=== PATIENT | female | born 1965 | race Caucasian/White ===

== ENCOUNTER 2023-09-23 03:12 | Outpatient (CLI) | payer MEDICAID, OTHER, SELFPAY ==
[2023-09-23 10:36] LABS: Abs Immature Grans 0.25 10^3/uL (0.0-0.06); Absolute Lymphocyte Count 2.14 10^3/uL (1.2-3.4); Absolute Neutrophil Count 19.22 10^3/uL (1.2-6.7); Basophils % 0.4; Eosinophils % 1.8; HCT 46.6 % (36.0-46.0); HGB 15.1 g/dL (11.2-15.7); Immature Grans % 1.1; Lymphocytes % 9.1; MCH 29.5 pg (27.0-33.0); MCHC 32.4 % (32.0-36.0); MCV 91 fL (80-95); MPV 9.5 fL (8.0-11.0); Monocytes % 5.7; Neutrophils % 81.9; Platelet Count 304 10^3/uL (130-400); RBC 5.11 10^6/uL (3.93-5.22); RDW 15.1 % (11.7-14.6); RDW-SD 50.8 fL; WBC 23.47 10^3/uL (4.4-10.8)
[2023-09-23 10:37] LABS: Absolute Basophil Count 0.09 10^3/uL (0.0-0.2); Absolute Eosinophil Count 0.42 10^3/uL (0.0-0.7); Absolute Monocyte Count 1.34 10^3/uL (0.1-0.8)
[2023-09-23 11:00] LABS: ALT 39 U/L (14-59); AST 10 U/L (15-37); Albumin 2.9 g/dL (3.4-5.0); Alkaline Phosphatase 116 U/L (46-116); Anion Gap 10.1 mmol/L (3-11); BUN 15 mg/dL (7-18); Bilirubin, Total 0.5 mg/dL (0.2-1.0); CO2 27.9 mmol/L (21.0-32.0); CREATININE 0.9 mg/dL (0.55-1.02); Chloride 99 mmol/L (98-107); Estimated GFR 73.64 (mL/min/1.73m2); FREE T4 1.94 ng/dL (0.76-1.46); Glucose 181 mg/dL (74-106); Magnesium 1.8 mg/dL (1.8-2.4); Potassium 3.8 mmol/L (3.5-5.1); Sodium 137 mmol/L (136-145); TSH 0.09 uIU/mL (0.36-3.74); Total Protein 7.2 g/dL (6.4-8.2)
== END 2023-09-23 03:13 | disposition home or self-care (01) ==
PROVIDERS: Visit Provider Internal Medicine Medical Oncology
DX: C34.31 Malignant neoplasm of lower lobe, right bronchus or lung (principal); C79.31 Secondary malignant neoplasm of brain; Z79.899 Other long term (current) drug therapy
CPT/HCPCS: 36415; 80053; 83735; 84439; 84443; 85025

== ENCOUNTER 2023-10-07 04:02 | Outpatient (CLI) | payer MEDICAID, OTHER, SELFPAY ==
[2023-10-07 13:01] LABS: Abs Immature Grans 0.11 10^3/uL (0.0-0.06); Absolute Basophil Count 0.07 10^3/uL (0.0-0.2); Absolute Eosinophil Count 0.11 10^3/uL (0.0-0.7); Absolute Neutrophil Count 4.27 10^3/uL (1.2-6.7); Eosinophils % 1.6; HCT 43.1 % (36.0-46.0); Immature Grans % 1.6; Lymphocytes % 25.9; MCH 29.6 pg (27.0-33.0); MCHC 32.5 % (32.0-36.0); MCV 91 fL (80-95); Monocytes % 8.6; Neutrophils % 61.3; Nucleated RBC 0.7 % (0.0-0.3); Platelet Count 196 10^3/uL (130-400); RBC 4.73 10^6/uL (3.93-5.22); RDW 18.1 % (11.7-14.6); RDW-SD 53.3 fL; WBC 6.96 10^3/uL (4.4-10.8)
[2023-10-07 13:30] LABS: ALT 46 U/L (14-59); AST 18 U/L (15-37); Alkaline Phosphatase 124 U/L (46-116); Anion Gap 6.8 mmol/L (3-11); BUN 20 mg/dL (7-18); Bilirubin, Total 0.7 mg/dL (0.2-1.0); CO2 33.2 mmol/L (21.0-32.0); CREATININE 1.3 mg/dL (0.55-1.02); Calcium 8.5 mg/dL (8.5-10.1); Chloride 93 mmol/L (98-107); Estimated GFR 47.37 (mL/min/1.73m2); FREE T4 1.41 ng/dL (0.76-1.46); Glucose 196 mg/dL (74-106); Magnesium 1.4 mg/dL (1.8-2.4); Potassium 4.7 mmol/L (3.5-5.1); Sodium 133 mmol/L (136-145); TSH 0.98 uIU/mL (0.36-3.74); Total Protein 7.3 g/dL (6.4-8.2)
== END 2023-10-07 04:03 | disposition home or self-care (01) ==
LOC: LBO 04:03
PROVIDERS: Visit Provider Internal Medicine Medical Oncology
DX: C34.31 Malignant neoplasm of lower lobe, right bronchus or lung (principal); C79.31 Secondary malignant neoplasm of brain
CPT/HCPCS: 36415; 80053; 83735; 84439; 84443; 85025

== ENCOUNTER 2023-10-14 04:03 | Outpatient (RCR) | payer OTHER, MEDICAID, SELFPAY ==
[2023-10-14 09:31] LABS: Abs Immature Grans 0.14 10^3/uL (0.0-0.06); Absolute Basophil Count 0.11 10^3/uL (0.0-0.2); Absolute Lymphocyte Count 2.08 10^3/uL (1.2-3.4); Absolute Monocyte Count 0.62 10^3/uL (0.1-0.8); Absolute Neutrophil Count 7.37 10^3/uL (1.2-6.7); Basophils % 1.1; HCT 42.5 % (36.0-46.0); HGB 13.7 g/dL (11.2-15.7); Immature Grans % 1.3; MCH 30.2 pg (27.0-33.0); MCHC 32.2 % (32.0-36.0); MCV 94 fL (80-95); MPV 9.6 fL (8.0-11.0); Neutrophils % 70.6; Nucleated RBC 0.2 % (0.0-0.3); Platelet Count 235 10^3/uL (130-400); RBC 4.54 10^6/uL (3.93-5.22); RDW 19.8 % (11.7-14.6); RDW-SD 62.3 fL; WBC 10.42 10^3/uL (4.4-10.8)
[2023-10-14] MEDS: Normal Saline Flush 10 ML SYR IVP (09:35)
[2023-10-14 10:02] LABS: ALT 67 U/L (14-59); AST 27 U/L (15-37); Albumin 2.6 g/dL (3.4-5.0); Alkaline Phosphatase 193 U/L (46-116); Anion Gap 6.5 mmol/L (3-11); BUN 11 mg/dL (7-18); Bilirubin, Total 0.9 mg/dL (0.2-1.0); CO2 29.5 mmol/L (21.0-32.0); CREATININE 0.9 mg/dL (0.55-1.02); Calcium 7.9 mg/dL (8.5-10.1); Chloride 99 mmol/L (98-107); Estimated GFR 73.64 (mL/min/1.73m2); FREE T4 1.96 ng/dL (0.76-1.46); Glucose 107 mg/dL (74-106); Magnesium 1.4 mg/dL (1.8-2.4); Sodium 135 mmol/L (136-145); TSH 1.09 uIU/mL (0.36-3.74); Total Protein 6.4 g/dL (6.4-8.2)
== END 2023-10-24 23:59 | disposition home or self-care (01) ==
LOC: INF 04:03
PROVIDERS: Visit Provider Internal Medicine Medical Oncology
DX: C34.31 Malignant neoplasm of lower lobe, right bronchus or lung (principal); C79.31 Secondary malignant neoplasm of brain; Z79.899 Other long term (current) drug therapy; Z45.2 Encounter for adjustment and management of vascular access device
CPT/HCPCS: 36591; 80053; 83735; 84439; 84443; 85025

== ENCOUNTER 2023-11-04 03:59 | Outpatient (RCR) | payer OTHER, MEDICAID, SELFPAY ==
[2023-11-04] MEDS: Normal Saline Flush 10 ML SYR IVP (09:06)
[2023-11-04 09:21] LABS: Abs Immature Grans 0.04 10^3/uL (0.0-0.06); Absolute Basophil Count 0.13 10^3/uL (0.0-0.2); Absolute Eosinophil Count 0.13 10^3/uL (0.0-0.7); Absolute Lymphocyte Count 2.37 10^3/uL (1.2-3.4); Absolute Monocyte Count 0.81 10^3/uL (0.1-0.8); Absolute Neutrophil Count 6.01 10^3/uL (1.2-6.7); Basophils % 1.4; Eosinophils % 1.4; HCT 43.8 % (36.0-46.0); HGB 13.9 g/dL (11.2-15.7); Immature Grans % 0.4; MCH 29.6 pg (27.0-33.0); MCHC 31.7 % (32.0-36.0); MCV 93 fL (80-95); MPV 9.5 fL (8.0-11.0); Monocytes % 8.5; Neutrophils % 63.3; Platelet Count 284 10^3/uL (130-400); RDW-SD 60.6 fL; WBC 9.49 10^3/uL (4.4-10.8)
[2023-11-04 09:46] LABS: ALT 13 U/L (14-59); AST 10 U/L (15-37); Albumin 2.6 g/dL (3.4-5.0); Alkaline Phosphatase 106 U/L (46-116); Anion Gap 6.4 mmol/L (3-11); BUN 6 mg/dL (7-18); Bilirubin, Total 0.6 mg/dL (0.2-1.0); CO2 31.6 mmol/L (21.0-32.0); CREATININE 0.8 mg/dL (0.55-1.02); Calcium 8.6 mg/dL (8.5-10.1); Chloride 102 mmol/L (98-107); FREE T4 1.38 ng/dL (0.76-1.46); Glucose 92 mg/dL (74-106); Magnesium 1.5 mg/dL (1.8-2.4); Potassium 3.9 mmol/L (3.5-5.1); Sodium 140 mmol/L (136-145); TSH 1.74 uIU/mL (0.36-3.74); Total Protein 7.1 g/dL (6.4-8.2)
== END 2023-11-24 23:59 | disposition home or self-care (01) ==
LOC: INF 03:59
PROVIDERS: Visit Provider Internal Medicine Medical Oncology
DX: C34.31 Malignant neoplasm of lower lobe, right bronchus or lung (principal); C79.31 Secondary malignant neoplasm of brain; Z79.899 Other long term (current) drug therapy; Z45.2 Encounter for adjustment and management of vascular access device
CPT/HCPCS: 36591; 80053; 83735; 84439; 84443; 85025

== ENCOUNTER 2023-12-02 22:19 | Outpatient (RCR) | payer OTHER, MEDICAID, SELFPAY ==
[2023-12-02] MEDS: Normal Saline Flush 10 ML SYR IVP (09:07)
[2023-12-02 09:29] LABS: Abs Immature Grans 0.05 10^3/uL (0.0-0.06); Absolute Basophil Count 0.07 10^3/uL (0.0-0.2); Absolute Eosinophil Count 0.16 10^3/uL (0.0-0.7); Absolute Lymphocyte Count 2.21 10^3/uL (1.2-3.4); Absolute Monocyte Count 0.61 10^3/uL (0.1-0.8); Absolute Neutrophil Count 7.15 10^3/uL (1.2-6.7); Basophils % 0.7; Eosinophils % 1.6; HCT 43.7 % (36.0-46.0); HGB 14.1 g/dL (11.2-15.7); Immature Grans % 0.5; Lymphocytes % 21.6; MCH 28.8 pg (27.0-33.0); MCHC 32.3 % (32.0-36.0); MCV 89 fL (80-95); MPV 9.5 fL (8.0-11.0); Neutrophils % 69.6; Platelet Count 179 10^3/uL (130-400); RBC 4.89 10^6/uL (3.93-5.22); RDW 17.2 % (11.7-14.6); RDW-SD 57.1 fL; WBC 10.25 10^3/uL (4.4-10.8)
[2023-12-02 09:53] LABS: ALT 10 U/L (14-59); AST 15 U/L (15-37); Albumin 2.7 g/dL (3.4-5.0); Alkaline Phosphatase 97 U/L (46-116); Anion Gap 7.6 mmol/L (3-11); BUN 6 mg/dL (7-18); Bilirubin, Total 0.5 mg/dL (0.2-1.0); CO2 35.4 mmol/L (21.0-32.0); CREATININE 0.7 mg/dL (0.55-1.02); Calcium 8.8 mg/dL (8.5-10.1); Chloride 99 mmol/L (98-107); Estimated GFR 98.95 (mL/min/1.73m2); Glucose 100 mg/dL (74-106); Magnesium 1.5 mg/dL (1.8-2.4); Sodium 142 mmol/L (136-145); TSH 0.93 uIU/mL (0.36-3.74); Total Protein 7.4 g/dL (6.4-8.2)
[2023-12-02 09:56] LABS: Potassium 2.9 mmol/L (3.5-5.1)
== END 2023-12-25 23:59 | disposition home or self-care (01) ==
LOC: INF 22:19
PROVIDERS: Visit Provider Internal Medicine Medical Oncology
DX: C34.31 Malignant neoplasm of lower lobe, right bronchus or lung (principal); C79.31 Secondary malignant neoplasm of brain; Z79.899 Other long term (current) drug therapy; Z45.2 Encounter for adjustment and management of vascular access device
CPT/HCPCS: 36591; 80053; 83735; 84439; 84443; 85025

== ENCOUNTER 2024-01-20 03:52 | Outpatient (RCR) | payer OTHER, MEDICAID, SELFPAY ==
[2023-12-30] MEDS: Normal Saline Flush 10 ML SYR IVP (09:01)
[2023-12-30 09:04] LABS: Abs Immature Grans 0.04 10^3/uL (0.0-0.06); Absolute Basophil Count 0.06 10^3/uL (0.0-0.2); Absolute Eosinophil Count 0.11 10^3/uL (0.0-0.7); Absolute Lymphocyte Count 2.53 10^3/uL (1.2-3.4); Absolute Monocyte Count 0.89 10^3/uL (0.1-0.8); Absolute Neutrophil Count 6.54 10^3/uL (1.2-6.7); Basophils % 0.6; Eosinophils % 1.1; HCT 37.1 % (36.0-46.0); HGB 12.2 g/dL (11.2-15.7); Immature Grans % 0.4; Lymphocytes % 24.9; MCH 29.4 pg (27.0-33.0); MCHC 32.9 % (32.0-36.0); MCV 89 fL (80-95); MPV 9.4 fL (8.0-11.0); Monocytes % 8.8; Neutrophils % 64.2; Platelet Count 209 10^3/uL (130-400); RBC 4.15 10^6/uL (3.93-5.22); RDW 18.8 % (11.7-14.6); RDW-SD 61.2 fL; WBC 10.17 10^3/uL (4.4-10.8)
[2023-12-30 09:27] LABS: ALT 13 U/L (14-59); AST 11 U/L (15-37); Albumin 2.7 g/dL (3.4-5.0); Alkaline Phosphatase 95 U/L (46-116); Anion Gap 9.2 mmol/L (3-11); BUN 7 mg/dL (7-18); Bilirubin, Total 0.6 mg/dL (0.2-1.0); CO2 29.8 mmol/L (21.0-32.0); CREATININE 0.8 mg/dL (0.55-1.02); Chloride 101 mmol/L (98-107); FREE T4 1.39 ng/dL (0.76-1.46); Glucose 109 mg/dL (74-106); Potassium 3.7 mmol/L (3.5-5.1); Sodium 140 mmol/L (136-145); TSH 1.29 uIU/mL (0.36-3.74); Total Protein 7.4 g/dL (6.4-8.2)
[2023-12-30 10:38] LABS: Magnesium 1.6 mg/dL (1.8-2.4)
[2024-01-20] MEDS: Normal Saline Flush 10 ML SYR IVP (13:22)
[2024-01-20 13:43] LABS: Abs Immature Grans 0.07 10^3/uL (0.0-0.06); Absolute Basophil Count 0.05 10^3/uL (0.0-0.2); Absolute Eosinophil Count 0.26 10^3/uL (0.0-0.7); Absolute Neutrophil Count 9.47 10^3/uL (1.2-6.7); Basophils % 0.4; Eosinophils % 1.9; HCT 35.3 % (36.0-46.0); HGB 11.6 g/dL (11.2-15.7); Immature Grans % 0.5; Lymphocytes % 20.5; MCH 30.2 pg (27.0-33.0); MCHC 32.9 % (32.0-36.0); MCV 92 fL (80-95); MPV 9.8 fL (8.0-11.0); Monocytes % 7.3; Neutrophils % 69.4; Platelet Count 246 10^3/uL (130-400); RBC 3.84 10^6/uL (3.93-5.22); RDW 19.4 % (11.7-14.6); RDW-SD 65.6 fL; WBC 13.64 10^3/uL (4.4-10.8)
[2024-01-20 14:12] LABS: ALT 9 U/L (14-59); AST 7 U/L (15-37); Albumin 2.8 g/dL (3.4-5.0); Alkaline Phosphatase 105 U/L (46-116); Anion Gap 8.6 mmol/L (3-11); BUN 7 mg/dL (7-18); Bilirubin, Total 0.4 mg/dL (0.2-1.0); CO2 29.4 mmol/L (21.0-32.0); CREATININE 0.7 mg/dL (0.55-1.02); Calcium 8.6 mg/dL (8.5-10.1); Chloride 103 mmol/L (98-107); Estimated GFR 98.95 (mL/min/1.73m2); FREE T4 1.33 ng/dL (0.76-1.46); Glucose 108 mg/dL (74-106); Magnesium 1.7 mg/dL (1.8-2.4); Potassium 3.9 mmol/L (3.5-5.1); Sodium 141 mmol/L (136-145); TSH 0.28 uIU/mL (0.36-3.74); Total Protein 7.3 g/dL (6.4-8.2)
== END 2024-01-23 23:59 | disposition home or self-care (01) ==
LOC: INF 03:52
PROVIDERS: Visit Provider Internal Medicine Medical Oncology
DX: C34.31 Malignant neoplasm of lower lobe, right bronchus or lung (principal); C79.31 Secondary malignant neoplasm of brain; Z79.899 Other long term (current) drug therapy; Z45.2 Encounter for adjustment and management of vascular access device
CPT/HCPCS: 36591; 80053; 83735; 84439; 84443; 85025

== ENCOUNTER 2024-03-23 05:27 | Outpatient (RCR) | payer OTHER, MEDICAID, SELFPAY ==
[2024-03-02] MEDS: Normal Saline Flush 10 ML SYR IVP (09:42)
[2024-03-02 10:17] LABS: Abs Immature Grans 0.04 10^3/uL (0.0-0.06); Absolute Basophil Count 0.06 10^3/uL (0.0-0.2); Absolute Eosinophil Count 0.28 10^3/uL (0.0-0.7); Absolute Lymphocyte Count 2.44 10^3/uL (1.2-3.4); Absolute Monocyte Count 0.55 10^3/uL (0.1-0.8); Basophils % 0.8; HCT 33.7 % (36.0-46.0); HGB 10.8 g/dL (11.2-15.7); Immature Grans % 0.6; Lymphocytes % 34.5; MCH 32.1 pg (27.0-33.0); MCV 100 fL (80-95); MPV 9.8 fL (8.0-11.0); Monocytes % 7.8; Neutrophils % 52.3; Platelet Count 231 10^3/uL (130-400); RBC 3.36 10^6/uL (3.93-5.22); RDW 14.3 % (11.7-14.6); RDW-SD 52.6 fL; WBC 7.07 10^3/uL (4.4-10.8)
[2024-03-02 10:41] LABS: ALT 11 U/L (14-59); AST 6 U/L (15-37); Albumin 2.9 g/dL (3.4-5.0); Alkaline Phosphatase 84 U/L (46-116); BUN 10 mg/dL (7-18); Bilirubin, Total 0.4 mg/dL (0.2-1.0); CREATININE 0.8 mg/dL (0.55-1.02); Calcium 8.6 mg/dL (8.5-10.1); Chloride 103 mmol/L (98-107); FREE T4 0.91 ng/dL (0.76-1.46); Glucose 98 mg/dL (74-106); Magnesium 1.8 mg/dL (1.8-2.4); Potassium 4.1 mmol/L (3.5-5.1); Sodium 141 mmol/L (136-145); TSH 3.57 uIU/Ml (0.36-3.74); Total Protein 7.1 g/dL (6.4-8.2)
[2024-03-23] MEDS: Normal Saline Flush 10 ML SYR IVP (09:19)
[2024-03-23 09:29] LABS: Abs Immature Grans 0.01 10^3/uL (0.0-0.06); Absolute Basophil Count 0.07 10^3/uL (0.0-0.2); Absolute Lymphocyte Count 2.57 10^3/uL (1.2-3.4); Absolute Monocyte Count 0.73 10^3/uL (0.1-0.8); Absolute Neutrophil Count 6.19 10^3/uL (1.2-6.7); Basophils % 0.7; HGB 11.9 g/dL (11.2-15.7); Immature Grans % 0.1; Lymphocytes % 25.8; MCH 32.2 pg (27.0-33.0); MCV 95 fL (80-95); MPV 9.7 fL (8.0-11.0); Monocytes % 7.3; Neutrophils % 62.1; Platelet Count 216 10^3/uL (130-400); RBC 3.69 10^6/uL (3.93-5.22); RDW 13.1 % (11.7-14.6); RDW-SD 45.2 fL; WBC 9.97 10^3/uL (4.4-10.8)
[2024-03-23 09:52] LABS: ALT 13 U/L (14-59); AST 6 U/L (15-37); Albumin 3.4 g/dL (3.4-5.0); Alkaline Phosphatase 88 U/L (46-116); Anion Gap 11.6 mmol/L (3-11); BUN 9 mg/dL (7-18); Bilirubin, Total 0.4 mg/dL (0.2-1.0); CO2 27.4 mmol/L (21.0-32.0); CREATININE 0.8 mg/dL (0.55-1.02); Calcium 8.6 mg/dL (8.5-10.1); Chloride 103 mmol/L (98-107); FREE T4 0.83 ng/dL (0.76-1.46); Glucose 108 mg/dL (74-106); Magnesium 1.8 mg/dL (1.8-2.4); Potassium 3.7 mmol/L (3.5-5.1); Sodium 142 mmol/L (136-145); TSH 6.43 uIU/Ml (0.36-3.74); Total Protein 7.7 g/dL (6.4-8.2)
== END 2024-03-24 23:59 | disposition home or self-care (01) ==
LOC: INF 05:27
PROVIDERS: Visit Provider Internal Medicine Medical Oncology
DX: C34.31 Malignant neoplasm of lower lobe, right bronchus or lung (principal); C79.31 Secondary malignant neoplasm of brain; Z79.899 Other long term (current) drug therapy; Z45.2 Encounter for adjustment and management of vascular access device
CPT/HCPCS: 36591; 80053; 83735; 84439; 84443; 85025

== ENCOUNTER 2024-04-23 03:49 | Outpatient (RCR) | payer OTHER, MEDICAID, SELFPAY ==
[2024-04-13] MEDS: Normal Saline Flush 10 ML SYR IVP (08:13)
[2024-04-13 08:36] LABS: Abs Immature Grans 0.04 10^3/uL (0.0-0.06); Absolute Basophil Count 0.06 10^3/uL (0.0-0.2); Absolute Eosinophil Count 0.29 10^3/uL (0.0-0.7); Absolute Lymphocyte Count 2.93 10^3/uL (1.2-3.4); Absolute Monocyte Count 0.54 10^3/uL (0.1-0.8); Absolute Neutrophil Count 3.46 10^3/uL (1.2-6.7); Basophils % 0.8 %; HCT 38.6 % (36.0-46.0); HGB 12.6 g/dL (11.2-15.7); Immature Grans % 0.5 %; MCH 31.4 pg (27.0-33.0); MCHC 32.6 % (32.0-36.0); MCV 96 fL (80-95); MPV 9.4 fL (8.0-11.0); Monocytes % 7.4 %; Neutrophils % 47.3 %; Platelet Count 232 10^3/uL (130-400); RBC 4.01 10^6/uL (3.93-5.22); RDW 12.9 % (11.7-14.6); RDW-SD 45.8 fL; WBC 7.32 10^3/uL (4.4-10.8)
[2024-04-13 09:00] LABS: ALT 15 U/L (14-59); AST 5 U/L (15-37); Albumin 3.3 g/dL (3.4-5.0); Alkaline Phosphatase 109 U/L (46-116); Anion Gap 9.5 mmol/L (3-11); BUN 12 mg/dL (7-18); Bilirubin, Total 0.3 mg/dL (0.2-1.0); CO2 27.5 mmol/L (21.0-32.0); Calcium 8.6 mg/dL (8.5-10.1); Chloride 104 mmol/L (98-107); Estimated GFR 64.49 (mL/min/1.73m2); FREE T4 1.33 ng/dL (0.76-1.46); Glucose 133 mg/dL (74-106); Magnesium 1.7 mg/dL (1.8-2.4); Sodium 141 mmol/L (136-145); Total Protein 7.6 g/dL (6.4-8.2)
[2024-04-23] MEDS: Normal Saline Flush 10 ML SYR IVP (11:37)
[2024-04-23 11:45] LABS: Abs Immature Grans 0.04 10^3/uL (0.0-0.06); Absolute Basophil Count 0.08 10^3/uL (0.0-0.2); Absolute Eosinophil Count 0.33 10^3/uL (0.0-0.7); Absolute Lymphocyte Count 3.84 10^3/uL (1.2-3.4); Absolute Monocyte Count 0.77 10^3/uL (0.1-0.8); Absolute Neutrophil Count 4.73 10^3/uL (1.2-6.7); Basophils % 0.8 %; Eosinophils % 3.4 %; HCT 39.7 % (36.0-46.0); HGB 12.9 g/dL (11.2-15.7); Immature Grans % 0.4 %; Lymphocytes % 39.2 %; MCH 30.9 pg (27.0-33.0); MCHC 32.5 % (32.0-36.0); MCV 95 fL (80-95); MPV 9.2 fL (8.0-11.0); Monocytes % 7.9 %; Neutrophils % 48.3 %; Platelet Count 243 10^3/uL (130-400); RBC 4.18 10^6/uL (3.93-5.22); RDW-SD 45.2 fL; WBC 9.79 10^3/uL (4.4-10.8)
[2024-04-23 12:22] LABS: ALT 16 U/L (14-59); AST < 5 U/L (15-37); Albumin 3.4 g/dL (3.4-5.0); Alkaline Phosphatase 118 U/L (46-116); Anion Gap 10.5 mmol/L (3-11); BUN 12 mg/dL (7-18); Bilirubin, Total 0.4 mg/dL (0.2-1.0); CO2 27.5 mmol/L (21.0-32.0); CREATININE 0.8 mg/dL (0.55-1.02); Calcium 8.9 mg/dL (8.5-10.1); Chloride 103 mmol/L (98-107); FREE T4 1.34 ng/dL (0.76-1.46); Glucose 114 mg/dL (74-106); Magnesium 1.8 mg/dL (1.8-2.4); Potassium 4.1 mmol/L (3.5-5.1); Sodium 141 mmol/L (136-145); TSH 0.15 uIU/Ml (0.36-3.74); Total Protein 7.6 g/dL (6.4-8.2)
== END 2024-04-24 23:59 | disposition home or self-care (01) ==
LOC: INF 03:49
PROVIDERS: Visit Provider Internal Medicine Medical Oncology
DX: C34.31 Malignant neoplasm of lower lobe, right bronchus or lung (principal); C79.31 Secondary malignant neoplasm of brain; Z79.899 Other long term (current) drug therapy; Z45.2 Encounter for adjustment and management of vascular access device
CPT/HCPCS: 36591; 80053; 83735; 84439; 84443; 85025

== ENCOUNTER 2024-05-18 02:50 | Outpatient (RCR) | payer OTHER, MEDICAID, SELFPAY ==
[2024-05-18] MEDS: Normal Saline Flush 10 ML SYR IVP (13:51)
[2024-05-18 14:07] LABS: Absolute Basophil Count 0.05 10^3/uL (0.0-0.2); Absolute Lymphocyte Count 2.67 10^3/uL (1.2-3.4); Basophils % 0.3 %; Eosinophils % 0.7 %; HCT 38.3 % (36.0-46.0); HGB 12.3 g/dL (11.2-15.7); Immature Grans % 0.7 %; Lymphocytes % 17.6 %; MCH 30.7 pg (27.0-33.0); MCHC 32.1 % (32.0-36.0); MCV 96 fL (80-95); MPV 9.3 fL (8.0-11.0); Monocytes % 5.9 %; Neutrophils % 74.8 %; Platelet Count 238 10^3/uL (130-400); RBC 4.01 10^6/uL (3.93-5.22); RDW 14.2 % (11.7-14.6); RDW-SD 49.7 fL; WBC 15.18 10^3/uL (4.4-10.8)
[2024-05-18 14:09] LABS: Absolute Eosinophil Count 0.11 10^3/uL (0.0-0.7); Absolute Neutrophil Count 11.35 10^3/uL (1.2-6.7)
[2024-05-18 14:31] LABS: ALT 19 U/L (14-59); AST 5 U/L (15-37); Albumin 3.3 g/dL (3.4-5.0); Alkaline Phosphatase 108 U/L (46-116); Anion Gap 12.1 mmol/L (3-11); BUN 17 mg/dL (7-18); Bilirubin, Total 0.43 mg/dL (0.2-1.0); CO2 25.9 mmol/L (21.0-32.0); CREATININE 1.1 mg/dL (0.55-1.02); Calcium 8.1 mg/dL (8.5-10.1); Chloride 103 mmol/L (98-107); Estimated GFR 57.52 (mL/min/1.73m2); FREE T4 1.27 ng/dL (0.76-1.46); Glucose 190 mg/dL (74-106); Magnesium 1.7 mg/dL (1.8-2.4); Potassium 3.7 mmol/L (3.5-5.1); Sodium 141 mmol/L (136-145); TSH 0.14 uIU/Ml (0.36-3.74); Total Protein 7.2 g/dL (6.4-8.2)
== END 2024-05-24 23:59 | disposition home or self-care (01) ==
LOC: INF 02:50
PROVIDERS: Visit Provider Internal Medicine Medical Oncology
DX: C34.31 Malignant neoplasm of lower lobe, right bronchus or lung (principal); C79.31 Secondary malignant neoplasm of brain; Z79.899 Other long term (current) drug therapy; Z45.2 Encounter for adjustment and management of vascular access device
CPT/HCPCS: 36591; 80053; 83735; 84439; 84443; 85025

== ENCOUNTER 2024-06-08 10:19 | Outpatient (RCR) | payer OTHER, MEDICAID, SELFPAY ==
[2024-06-08] MEDS: Normal Saline Flush 10 ML SYR IVP (10:36)
[2024-06-08 10:40] LABS: Abs Immature Grans 0.07 10^3/uL (0.0-0.06); Absolute Basophil Count 0.08 10^3/uL (0.0-0.2); Absolute Eosinophil Count 0.31 10^3/uL (0.0-0.7); Absolute Lymphocyte Count 2.69 10^3/uL (1.2-3.4); Absolute Monocyte Count 0.68 10^3/uL (0.1-0.8); Basophils % 0.9 %; Eosinophils % 3.6 %; HCT 35.5 % (36.0-46.0); HGB 11.6 g/dL (11.2-15.7); Immature Grans % 0.8 %; Lymphocytes % 31.2 %; MCH 30.4 pg (27.0-33.0); MCHC 32.7 % (32.0-36.0); MCV 93 fL (80-95); MPV 9.4 fL (8.0-11.0); Monocytes % 7.9 %; Neutrophils % 55.6 %; Platelet Count 250 10^3/uL (130-400); RBC 3.81 10^6/uL (3.93-5.22); RDW 13.7 % (11.7-14.6); RDW-SD 46.9 fL; WBC 8.63 10^3/uL (4.4-10.8)
[2024-06-08 11:30] LABS: ALT 14 U/L (14-59); AST 5 U/L (15-37); Alkaline Phosphatase 123 U/L (46-116); Anion Gap 7.5 mmol/L (3-11); BUN 9 mg/dL (7-18); Bilirubin, Total 0.36 mg/dL (0.2-1.0); CO2 30.5 mmol/L (21.0-32.0); Calcium 8.7 mg/dL (8.5-10.1); Chloride 104 mmol/L (98-107); Estimated GFR 64.49 (mL/min/1.73m2); Glucose 182 mg/dL (74-106); Magnesium 1.8 mg/dL (1.8-2.4); Potassium 3.8 mmol/L (3.5-5.1); Sodium 142 mmol/L (136-145); TSH 0.08 uIU/Ml (0.36-3.74); Total Protein 7.1 g/dL (6.4-8.2)
[2024-06-08 11:46] LABS: FREE T4 1.35 ng/dL (0.76-1.46)
== END 2024-06-24 23:59 | disposition home or self-care (01) ==
LOC: INF 10:19
PROVIDERS: Visit Provider Internal Medicine Medical Oncology
DX: C34.31 Malignant neoplasm of lower lobe, right bronchus or lung (principal); C79.31 Secondary malignant neoplasm of brain; Z79.899 Other long term (current) drug therapy
CPT/HCPCS: 36591; 80053; 83735; 84439; 84443; 85025

== ENCOUNTER 2024-07-20 02:39 | Outpatient (RCR) | payer OTHER, MEDICAID, SELFPAY ==
[2024-06-29 10:41] LABS: Abs Immature Grans 0.07 10^3/uL (0.0-0.06); Absolute Basophil Count 0.06 10^3/uL (0.0-0.2); Absolute Monocyte Count 0.75 10^3/uL (0.1-0.8); Absolute Neutrophil Count 7.99 10^3/uL (1.2-6.7); Basophils % 0.5 %; Eosinophils % 4.9 %; HCT 34.6 % (36.0-46.0); Immature Grans % 0.6 %; Lymphocytes % 18.1 %; MCHC 31.8 % (32.0-36.0); MCV 98 fL (80-95); MPV 9.9 fL (8.0-11.0); Monocytes % 6.5 %; Neutrophils % 69.4 %; Platelet Count 203 10^3/uL (130-400); RBC 3.55 10^6/uL (3.93-5.22); RDW 14.4 % (11.7-14.6); RDW-SD 51.8 fL; WBC 11.52 10^3/uL (4.4-10.8)
[2024-06-29 10:42] LABS: Absolute Eosinophil Count 0.56 10^3/uL (0.0-0.7); Absolute Lymphocyte Count 2.09 10^3/uL (1.2-3.4)
[2024-06-29 11:04] LABS: ALT 16 U/L (14-59); AST 6 U/L (15-37); Albumin 2.9 g/dL (3.4-5.0); Alkaline Phosphatase 116 U/L (46-116); Anion Gap 5.2 mmol/L (3-11); BUN 9 mg/dL (7-18); Bilirubin, Total 0.42 mg/dL (0.2-1.0); CO2 32.8 mmol/L (21.0-32.0); CREATININE 1.2 mg/dL (0.55-1.02); Calcium 8.6 mg/dL (8.5-10.1); Chloride 101 mmol/L (98-107); Estimated GFR 51.82 (mL/min/1.73m2); FREE T4 1.11 ng/dL (0.76-1.46); Glucose 220 mg/dL (74-106); Magnesium 1.9 mg/dL (1.8-2.4); Potassium 4.7 mmol/L (3.5-5.1); Sodium 139 mmol/L (136-145); TSH 0.63 uIU/Ml (0.36-3.74); Total Protein 6.7 g/dL (6.4-8.2)
[2024-06-29] MEDS: Normal Saline Flush 10 ML SYR IVP (12:44)
[2024-07-20] MEDS: Normal Saline Flush 10 ML SYR IVP (10:04)
[2024-07-20 10:12] LABS: Abs Immature Grans 0.09 10^3/uL (0.0-0.06); Absolute Basophil Count 0.07 10^3/uL (0.0-0.2); Absolute Eosinophil Count 0.26 10^3/uL (0.0-0.7); Absolute Lymphocyte Count 3.02 10^3/uL (1.2-3.4); Absolute Monocyte Count 1.08 10^3/uL (0.1-0.8); Absolute Neutrophil Count 11.79 10^3/uL (1.2-6.7); Basophils % 0.4 %; Eosinophils % 1.6 %; HCT 41.8 % (36.0-46.0); HGB 13.7 g/dL (11.2-15.7); Immature Grans % 0.6 %; Lymphocytes % 18.5 %; MCH 30.5 pg (27.0-33.0); MCHC 32.8 % (32.0-36.0); MCV 93 fL (80-95); MPV 9.1 fL (8.0-11.0); Monocytes % 6.6 %; Neutrophils % 72.3 %; Platelet Count 268 10^3/uL (130-400); RBC 4.49 10^6/uL (3.93-5.22); RDW 13.5 % (11.7-14.6); RDW-SD 46.7 fL; WBC 16.31 10^3/uL (4.4-10.8)
[2024-07-20 10:38] LABS: ALT 14 U/L (14-59); AST 6 U/L (15-37); Albumin 3.4 g/dL (3.4-5.0); Alkaline Phosphatase 109 U/L (46-116); Anion Gap 8.7 mmol/L (3-11); BUN 13 mg/dL (7-18); Bilirubin, Total 0.54 mg/dL (0.2-1.0); CO2 29.3 mmol/L (21.0-32.0); CREATININE 1.2 mg/dL (0.55-1.02); Calcium 9.1 mg/dL (8.5-10.1); Chloride 100 mmol/L (98-107); Estimated GFR 51.82 (mL/min/1.73m2); FREE T4 1.26 ng/dL (0.76-1.46); Glucose 172 mg/dL (74-106); Magnesium 1.9 mg/dL (1.8-2.4); Potassium 3.5 mmol/L (3.5-5.1); Sodium 138 mmol/L (136-145); TSH 0.48 uIU/Ml (0.36-3.74); Total Protein 7.5 g/dL (6.4-8.2)
== END 2024-07-25 23:59 | disposition home or self-care (01) ==
LOC: INF 02:39
PROVIDERS: Visit Provider Internal Medicine Medical Oncology
DX: C34.31 Malignant neoplasm of lower lobe, right bronchus or lung (principal); C79.31 Secondary malignant neoplasm of brain; Z79.899 Other long term (current) drug therapy
CPT/HCPCS: 36415; 36591; 80053; 83735; 84439; 84443; 85025

== ENCOUNTER 2024-07-20 11:03 | Emergency (ER) | payer OTHER, MEDICAID, SELFPAY ==
[2024-07-20] VITALS (25 sets, daily range): BP systolic 114–142; BP diastolic 47–98; PULSE 72–96; RESP 10–20; TEMP 37.2; O2SAT 93
--- NOTE | 2024-07-20 11:45 | DI.CT_ITS ---
Exam(s) CT ABDOMEN PELVIS W EXAM: CT ABDOMEN PELVIS W CLINICAL HISTORY: abd pain, r rib pain; hx met lung ca, bowel obst. TECHNIQUE: Imaging Protocol: Axial computed tomography images with coronal and sagittal reformatted images were created and reviewed CONTRAST MATERIAL: Intravenous: Omnipaque-350 100cc Oral: None COMPARISON: CR XR CHEST 2V PA LATERAL from 07/20/2024 FINDINGS: VISUALIZED LUNG BASES: There is a partially calcified partially spiculated nodule in the right lower lobe which measures 1.8 x 1.0 cm. No associated pleural effusion nor rib destruction evident.. ABDOMEN: There is no ascites. LIVER: Liver is somewhat hypodense implying steatosis but there are no discrete focal hepatic lesions identified. No dilated intrahepatic ducts. GALLBLADDER/BILIARY: No obvious gallbladder pathology. CBD is not dilated. PANCREAS: Pancreatic head, body, and tail appear unremarkable. The most medial aspect of the uncinat e process there is in addition density measuring 1.5 x 0.9 cm just anterior to the abdominal aorta bu t appearing separate from the duodenal C-loop at this level. It is isodense to the remainder of the pancreas may just be a variant of normal or enlarged lymph node. Few slightly prominent lymph nodes are noted on either side of the common hepatic artery branch of the celiac. SPLEEN: Spleen is not enlarged. No obvious intrasplenic lesions. Splenic and portal veins are paten t. ADRENALS: There are no significant adrenal masses. KIDNEYS:There are benign cysts in both kidneys measuring up to 1.8 cm. These do not require further investigation. There are no solid renal masses. No calculi. No hydronephrosis.. ABDOMINAL AORTA: Abdominal aorta is heavily calcified. Mild dilatation of the most inferior aspect i s noted just above the aortic bifurcation where it exhibits maximum diameter of 2.7 cm. The common i liac arteries are also calcified but not enlarged. LYMPH NODES:There is no para-aortic adenopathy. ABDOMINAL WALL: Small midline anterior abdominal wall fat only containing hernia at and above the umb ilicus level. No other hernias evident. GI: There is no evidence of bowel obstruction, free air, nor abscess. PELVIS: GI: No evidence of appendicitis.Redundant sigmoid but without evidence of significant diverticular di sease. LYMPH NODES: There is no intrapelvic nor inguinal adenopathy. REPRODUCTIVE: Uterus is surgically absent. No abnormal adnexal masses. No free fluid in the pelvis. URINARY BLADDER: No calculi nor obvious masses evident OSSEOUS: Compression fracture of L5 noted. Cannot exclude metastatic. No significant retropulsion. IMPRESSION: 1. Compression fracture L5 vertebral body noted which appears somewhat suspicious. Cannot exclude me tastatic involvement. There are no previous for comparison. There is no obvious compromise of the c entral spinal canal at this level. 2. There is a 15 x 9 mm nodular density just anterior to the abdominal aorta and intimately related t o the most medial aspect of the uncinate process of the pancreas. This nodule is isodense to the blake creas. Variant of normal versus small mass such as slightly enlarged lymph noted at this level. I n ote there are few other retroperitoneal small lymph nodes noted. There is no para-aortic adenopathy. Recommend follow-up pancreatic protocol contrast infused MRI. 3. Hepatic steatosis. No focal hepatic lesions. Biliary tree is not dilated. 4. Abdominal aorta and iliac arteries are heavily calcified. There is mild aneurysmal dilatation of the lower most aspect of the abdominal aorta just above the bifurcation, exhibiting maximum diameter of 2.7 cm at this level. The common iliac arteries are calcified but not dilated. 5. There has been previous hysterectomy. There are no abnormal adnexal masses no free fluid. 6. Partially calcified nodular density-mass in the right lower lobe. Possibly may represent her kno wn primary malignancy. Discussed by phone with ER physician. RADIATION DOSE DELIVERED: 505.86mGy.cm Total DLP DATA REPOSITORY: All CT scans at this facility are submitted to the National Radiology Data Registry (NRDR) Dose Index Registry (DIR) with the [employer] [place] [employer] ([employer]). RADIATION OPTIMIZATION: All CT scans at this facility use at least one of these dose optimization te chniques: automated exposure control; mA and/or kV adjustment per patient size (includes targeted exa ms where dose is matched to clinical indication); or iterative reconstruction.
--- NOTE | 2024-07-20 11:50 | DI.RAD_ITS ---
Exam(s) XR CHEST 2V PA LATERAL EXAM: XR CHEST 2V PA LATERAL CLINICAL HISTORY: met lung ca, right lower rib pain, abd pain TECHNIQUE: 2D digital imaging was performed. Two views. COMPARISON: CT CT ABDOMEN PELVIS W from 07/20/2024 FINDINGS: Overlying moderately HEART: Mildly enlarged. Aorta: Not dilated. PULMONARY VASCULATURE: Mildly prominent. MEDIASTINUM: Unremarkable. LUNGS: Increased interstitial markings. This may represent chronic fibrotic changes. Pulmonary pauly a not excluded. No focal area of consolidation. No gross evidence of mass. PLEURAL SPACE: No pleural effusion or pneumothorax. BONE:Unremarkable for age. SOFT TISSUES: Unremarkable. IMPRESSION: Fibrotic changes. Question of mild superimposed pulmonary edema. DATA REPOSITORY: RADIATION DOSE DELIVERED:
--- NOTE | 2024-07-20 11:54 | W.ED.GENAD ---
Discharge Plan Disposition Patient Disposition: Home Condition: Stable Discharge Details Chief Complaint: Abd Prob Clinical Impression: Abdominal lymphadenopathy Primary Care Provider: Mumtaz Ewing ED Provider: Mumtaz Ewing Home Meds and New Rx's Prescriptions: No Action duloxetine [Cymbalta] 30 mg capsule,delayed release(DR/EC) 30 mg PO DAILY duloxetine [Cymbalta] 60 mg capsule,delayed release(DR/EC) 60 mg PO DAILY levothyroxine [Euthyrox] 150 mcg tablet 150 mcg PO DAILY Patient Comments: takes every other day lorazepam [Ativan] 1 mg tablet 1 mg PO DAILY PRN Rx Instructions: take 1mg 15mg prior to MRI magnesium 200 mg tablet 200 mg PO BID morphine 15 mg tablet 15 mg PO Q4H PRN naloxone [Rextovy] 4 mg/actuation spray,non-aerosol 1 spray intranasal ONCE PRN ondansetron 4 mg tablet,disintegrating 4 mg PO Q8H PRN potassium chloride [Klor-Con] 20 mEq packet 20 meq PO DAILY prednisone 10 mg tablet 10 mg PO DAILY pregabalin [Lyrica] 50 mg capsule 50 mg PO .COMPLEX Rx Instructions: 100mg QAM, 50mg Qmid-day, 50mg QHS prochlorperazine maleate [Compazine] 10 mg tablet 10 mg PO Q6H PRN Serevent Diskus 50 mcg/dose blister with device 1 inh inhalation BID trazodone 150 mg tablet 150 mg PO QHS PRN Incruse Ellipta 62.5 mcg/actuation blister with device 1 inh inhalation DAILY Discharge Instructions Additional Instructions: Please follow-up with your primary care physician and your primary oncologist. Please return to the emergency department for any worsening symptoms HPI General Date/Time Provider Initiated Documentation: 07/20/24 11:48. 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 Patient receives immunotherapy and radiation. Patient does have history of a bowel obstruction status post surgical intervention at [facility] within the last couple of months Related Data Home Medications ?Medication ?Instructions ?Recorded ?Confirmed duloxetine 30 mg capsule,delayed 30 mg PO DAILY 07/20/24 07/20/24 release (Cymbalta) duloxetine 60 mg capsule,delayed 60 mg PO DAILY 07/20/24 07/20/24 release (Cymbalta) levothyroxine 150 mcg tablet 150 mcg PO DAILY 07/20/24 07/20/24 (Euthyrox) lorazepam 1 mg tablet (Ativan) 1 mg PO DAILY PRN 07/20/24 07/20/24 magnesium 200 mg tablet 200 mg PO BID 07/20/24 07/20/24 morphine 15 mg immediate release 15 mg PO Q4H PRN 07/20/24 07/20/24 tablet naloxone 4 mg/actuation nasal 1 spray intranasal ONCE PRN 07/20/24 07/20/24 spray (Rextovy) ondansetron 4 mg disintegrating 4 mg PO Q8H PRN 07/20/24 07/20/24 tablet potassium chloride 20 mEq oral 20 meq PO DAILY 07/20/24 07/20/24 packet (Klor-Con) prednisone 10 mg tablet 10 mg PO DAILY 07/20/24 07/20/24 pregabalin 50 mg capsule (Lyrica) 50 mg PO .COMPLEX 07/20/24 07/20/24 prochlorperazine maleate 10 mg 10 mg PO Q6H PRN 07/20/24 07/20/24 tablet (Compazine) salmeterol 50 mcg/dose blister 1 inh inhalation BID 07/20/24 07/20/24 powder for inhalation (Serevent Diskus) trazodone 150 mg tablet 150 mg PO QHS PRN 07/20/24 07/20/24 umeclidinium 62.5 mcg/actuation 1 inh inhalation DAILY 07/20/24 07/20/24 blister powder for inhalation (Incruse Ellipta) Allergies Allergy/AdvReac Type Severity Reaction Status Date / Time propranolol AdvReac Intermediate Other (See Verified 07/20/24 11:40 Comment) General Stated Complaint: Abd Prob JOMAR: 3 Exam Narrative Exam Narrative: Alert oriented no acute distress Moist mucous membranes tolerating secretions Speaking full sentences no respiratory distress Slightly distended abdomen tender in the right upper quadrant and along the margin of right rib without guarding or rebounding Moving all extremities without deficit no peripheral edema Course Vital Signs Vital signs: Vital Signs Temperature 37.2 C 07/20/24 11:08 Pulse 96 H 07/20/24 11:08 Respiratory Rate 16 07/20/24 11:08 Blood Pressure 132/70 07/20/24 11:08 Pulse Oximetry 93 07/20/24 11:08 Temperature 37.2 C 07/20/24 11:08 Pulse 96 H 07/20/24 11:08 Respiratory Rate 16 07/20/24 11:08 Respiratory Effort Normal 07/20/24 11:14 Blood Pressure 132/70 07/20/24 11:08 Pulse Oximetry 93 07/20/24 11:08 Pain Level 8 07/20/24 11:08 Medical Decision Making 58-year-old female history of metastatic lung cancer on immunotherapy and radiation history of bowel obstruction status post surgical intervention at [facility] within the last couple of months presents with abdominal discomfort right upper quadrant and right rib in nature no shortness of breath no chest pain mild nausea without vomiting, patient has had liquid stool over the last couple of weeks. Mildly distended on examination without peritoneal signs afebrile nontoxic hemodynamically stable. Consider recurrent bowel obstruction versus enterocolitis versus must consider biliary colic versus cholecystitis versus metastatic bone to ribs versus pleural effusion versus less likely PE ACS or aortic pathology. Screening labs imaging fluids analgesia close reassess 16: 54 patient resting comfortably no acute distress. Incidental lymphadenopathy noted in the abdomen. Findings consistent with metastatic disease seen on imaging. Hemodynamically stable no signs of active infection or bowel obstruction. Home care instructions and return precautions given. Patient to follow-up primary oncologist Quality:SDOH Health Related Social Needs: No Data to Display PFSH All Active Problems (Updated 07/20/24 @ 16:56 by Mumtaz Ewing MD) Abdominal lymphadenopathy (Acute) Social History Smoking/Tobacco Use Status: Current every day Tobacco Type: cigarettes Smoking risk assessment performed?: Yes Alcohol Intake: current Alcohol Intake frequency: holidays/special occasions only Drug use: Never Substance use type: marijuana Housing: house Do you feel safe at home: Yes Do you feel safe in your relationship?: Yes
[2024-07-20] MEDS: HYDROmorphone 2 MG/ML SYR 0.5 MG IVP ×2 (12:13→17:04)
[2024-07-20] MEDS: Normal Saline 500 ML 1000 ML IV (12:13)
[2024-07-20 12:16] LABS: Absolute Eosinophil Count 0.12 10^3/uL (0.0-0.7); Basophils % 0.5 %; Eosinophils % 0.8 %; HCT 39.8 % (36.0-46.0); HGB 13.3 g/dL (11.2-15.7); Immature Grans % 0.7 %; Lymphocytes % 12.1 %; MCH 30.8 pg (27.0-33.0); MCHC 33.4 % (32.0-36.0); MCV 92 fL (80-95); MPV 8.8 fL (8.0-11.0); Monocytes % 5.3 %; Neutrophils % 80.6 %; Platelet Count 232 10^3/uL (130-400); RBC 4.32 10^6/uL (3.93-5.22); RDW 13.5 % (11.7-14.6); RDW-SD 45.9 fL; WBC 15.18 10^3/uL (4.4-10.8)
[2024-07-20 12:17] LABS: Absolute Basophil Count 0.08 10^3/uL (0.0-0.2); Absolute Lymphocyte Count 1.84 10^3/uL (1.2-3.4); Absolute Neutrophil Count 12.24 10^3/uL (1.2-6.7)
[2024-07-20 12:38] LABS: ALT 15 U/L (14-59); AST 5 U/L (15-37); Albumin 3.4 g/dL (3.4-5.0); Alkaline Phosphatase 105 U/L (46-116); Anion Gap 5.8 mmol/L (3-11); BUN 13 mg/dL (7-18); Bilirubin, Total 0.58 mg/dL (0.2-1.0); CO2 32.2 mmol/L (21.0-32.0); Calcium 9.2 mg/dL (8.5-10.1); Chloride 100 mmol/L (98-107); Estimated GFR 64.49 (mL/min/1.73m2); Glucose 120 mg/dL (74-106); Lipase 24 U/L (16-77); Potassium 4.1 mmol/L (3.5-5.1); Sodium 138 mmol/L (136-145); Total Protein 7.3 g/dL (6.4-8.2)
[2024-07-20] MEDS: Omnipaque 350 MG/ML 100 ML BTL IJ (13:17)
[2024-07-20] MEDS: Normal Saline - Diluent 50 ML VIAL IJ (13:19)
[2024-07-20 14:57] LABS: Bilirubin Negative (Negative); Blood Negative (Negative); Clarity Clear (Clear); Glucose Negative (Negative); Ketones Negative (Negative); Leukocyte Esterase Negative (Negative); Nitrite Negative (Negative); Urobilinogen 0.2 mg/dL (Up to 0.2)
== END 2024-07-20 17:12 | disposition home or self-care (01) ==
PROVIDERS: Emergency Provider Emergency Medicine; PCP Emergency Medicine
DX: R59.0 Localized enlarged lymph nodes (principal); R11.0 Nausea; C34.90 Malignant neoplasm of unspecified part of unspecified bronchus or lung; C79.51 Secondary malignant neoplasm of bone; C79.31 Secondary malignant neoplasm of brain; F17.210 Nicotine dependence, cigarettes, uncomplicated; Z92.3 Personal history of irradiation; Z92.25 Personal history of immunosuppression therapy
CPT/HCPCS: 80053; 83690; 96361; 96374; 96376; 99285; 71046; 74177; 81003; 85025; 99284; J1170; J3490

== ENCOUNTER 2024-08-17 02:46 | Outpatient (RCR) | payer OTHER, MEDICAID, SELFPAY ==
[2024-08-17] MEDS: Normal Saline Flush 10 ML SYR IVP (10:18)
[2024-08-17 10:37] LABS: Absolute Basophil Count 0.09 10^3/uL (0.0-0.2); Basophils % 0.5 %; Eosinophils % 0.8 %; HCT 39.5 % (36.0-46.0); HGB 12.5 g/dL (11.2-15.7); Immature Grans % 1.7 %; Lymphocytes % 16.5 %; MCH 30.3 pg (27.0-33.0); MCHC 31.6 % (32.0-36.0); MCV 96 fL (80-95); MPV 9.4 fL (8.0-11.0); Monocytes % 5.5 %; Platelet Count 245 10^3/uL (130-400); RBC 4.12 10^6/uL (3.93-5.22); RDW 14.5 % (11.7-14.6); RDW-SD 51.3 fL; WBC 17.19 10^3/uL (4.4-10.8)
[2024-08-17 10:39] LABS: Absolute Eosinophil Count 0.14 10^3/uL (0.0-0.7); Absolute Lymphocyte Count 2.84 10^3/uL (1.2-3.4); Absolute Monocyte Count 0.95 10^3/uL (0.1-0.8); Absolute Neutrophil Count 12.89 10^3/uL (1.2-6.7)
[2024-08-17 11:14] LABS: ALT 17 U/L (14-59); AST < 5 U/L (15-37); Alkaline Phosphatase 98 U/L (46-116); Anion Gap 14.2 mmol/L (3-11); BUN 15 mg/dL (7-18); Bilirubin, Total 0.24 mg/dL (0.2-1.0); CO2 25.8 mmol/L (21.0-32.0); CREATININE 1.2 mg/dL (0.55-1.02); Calcium 8.6 mg/dL (8.5-10.1); Chloride 100 mmol/L (98-107); Estimated GFR 51.82 (mL/min/1.73m2); FREE T4 0.83 ng/dL (0.76-1.46); Glucose 155 mg/dL (74-106); Magnesium 1.1 mg/dL (1.8-2.4); Potassium 3.6 mmol/L (3.5-5.1); Sodium 140 mmol/L (136-145); TSH 1.89 uIU/Ml (0.36-3.74); Total Protein 6.6 g/dL (6.4-8.2)
== END 2024-08-24 23:59 | disposition home or self-care (01) ==
LOC: INF 02:46
PROVIDERS: PCP Emergency Medicine; Visit Provider Internal Medicine Medical Oncology
DX: C34.31 Malignant neoplasm of lower lobe, right bronchus or lung (principal); C79.31 Secondary malignant neoplasm of brain; Z79.899 Other long term (current) drug therapy
CPT/HCPCS: 36591; 80053; 83735; 84439; 84443; 85025

== ENCOUNTER 2025-01-11 01:48 | Outpatient (RCR) | payer OTHER, MEDICAID, SELFPAY ==
[2025-01-11] MEDS: Normal Saline Flush 10 ML SYR IVP (09:48)
[2025-01-11 09:57] LABS: Abs Immature Grans 0.06 10^3/uL (0.0-0.06); Absolute Basophil Count 0.09 10^3/uL (0.0-0.2); Absolute Eosinophil Count 0.29 10^3/uL (0.0-0.7); Absolute Lymphocyte Count 3.53 10^3/uL (1.2-3.4); Absolute Monocyte Count 0.97 10^3/uL (0.1-0.8); Absolute Neutrophil Count 6.49 10^3/uL (1.2-6.7); Basophils % 0.8 %; Eosinophils % 2.5 %; HCT 35.5 % (36.0-46.0); HGB 11.7 g/dL (11.2-15.7); Immature Grans % 0.5 %; Lymphocytes % 30.9 %; MCH 30.2 pg (27.0-33.0); MCV 92 fL (80-95); MPV 9.4 fL (8.0-11.0); Monocytes % 8.5 %; Neutrophils % 56.8 %; Platelet Count 260 10^3/uL (130-400); RBC 3.88 10^6/uL (3.93-5.22); RDW 14.3 % (11.7-14.6); RDW-SD 48.3 fL; WBC 11.43 10^3/uL (4.4-10.8)
[2025-01-11 10:26] LABS: ALT 19 U/L (14-59); AST 6 U/L (15-37); Albumin 3.2 g/dL (3.4-5.0); Alkaline Phosphatase 111 U/L (46-116); Anion Gap 6.5 mmol/L (3-11); BUN 22 mg/dL (7-18); Bilirubin, Total 0.34 mg/dL (0.2-1.0); CO2 26.5 mmol/L (21.0-32.0); CREATININE 1.2 mg/dL (0.55-1.02); Calcium 9.2 mg/dL (8.5-10.1); Chloride 107 mmol/L (98-107); FREE T4 0.79 ng/dL (0.76-1.46); Glucose 103 mg/dL (74-106); Potassium 4.8 mmol/L (3.5-5.1); Sodium 140 mmol/L (136-145); TSH 7.69 uIU/mL (0.36-3.74); Total Protein 6.9 g/dL (6.4-8.2)
[2025-01-11 12:00] LABS: Magnesium 1.8 mg/dL (1.8-2.4)
== END 2025-01-22 23:59 | disposition home or self-care (01) ==
LOC: INF 01:48
PROVIDERS: Nurse Practitioner Family; PCP Emergency Medicine; Visit Provider Internal Medicine Medical Oncology
DX: E83.42 Hypomagnesemia (principal); C34.31 Malignant neoplasm of lower lobe, right bronchus or lung; Z79.899 Other long term (current) drug therapy
CPT/HCPCS: 36591; 80053; 83735; 84439; 84443; 85025

== ENCOUNTER 2025-02-15 02:22 | Outpatient (RCR) | payer OTHER, MEDICAID, SELFPAY ==
[2025-02-15 12:22] LABS: Abs Immature Grans 0.04 10^3/uL (0.0-0.06); Absolute Basophil Count 0.07 10^3/uL (0.0-0.2); Absolute Eosinophil Count 0.31 10^3/uL (0.0-0.7); Absolute Lymphocyte Count 2.78 10^3/uL (1.2-3.4); Absolute Monocyte Count 0.72 10^3/uL (0.1-0.8); Basophils % 0.8 %; Eosinophils % 3.4 %; HCT 35.3 % (36.0-46.0); HGB 11.3 g/dL (11.2-15.7); Immature Grans % 0.4 %; Lymphocytes % 30.2 %; MCH 30.5 pg (27.0-33.0); MCV 95 fL (80-95); Monocytes % 7.8 %; Neutrophils % 57.4 %; Platelet Count 212 10^3/uL (130-400); RDW 13.6 % (11.7-14.6); RDW-SD 48.2 fL; WBC 9.22 10^3/uL (4.4-10.8)
[2025-02-15] MEDS: Normal Saline Flush 10 ML SYR IVP (12:23)
[2025-02-15 13:05] LABS: ALT 20 U/L (14-59); AST 6 U/L (15-37); Albumin 3.1 g/dL (3.4-5.0); Alkaline Phosphatase 110 U/L (46-116); Anion Gap 7.3 mmol/L (3-11); BUN 9 mg/dL (7-18); Bilirubin, Total 0.4 mg/dL (0.2-1.0); CO2 30.7 mmol/L (21.0-32.0); Calcium 8.4 mg/dL (8.5-10.1); Chloride 104 mmol/L (98-107); Estimated GFR 64.09 (mL/min/1.73m2); Glucose 192 mg/dL (74-106); Potassium 3.8 mmol/L (3.5-5.1); Sodium 142 mmol/L (136-145); TSH 0.38 uIU/mL (0.36-3.74); Total Protein 6.8 g/dL (6.4-8.2)
[2025-02-15 22:22] LABS: T4, Free 1.4 ng/dL (0.8-2.2)
== END 2025-02-22 23:59 | disposition home or self-care (01) ==
LOC: INF 02:22
PROVIDERS: Nurse Practitioner Family; PCP Emergency Medicine; Visit Provider Internal Medicine Medical Oncology
DX: E83.42 Hypomagnesemia (principal); C34.31 Malignant neoplasm of lower lobe, right bronchus or lung; C79.31 Secondary malignant neoplasm of brain; Z79.899 Other long term (current) drug therapy
CPT/HCPCS: 36591; 80053; 83735; 84439; 84443; 85025